=== PATIENT | female | born 1980 | race Caucasian/White ===

== ENCOUNTER 2017-09-22 13:26 | Observation (INO) | payer OTHER ==
[~2017-09-22] VITALS: Ht 167.6 cm; Wt 129.3 kg
[~2017-09-22 13:26] MED LIST: ALDOMET250 MG PO; COLACE100 MG PO; ENDOCET 5-3251 EACH PO; FEOSOL325 MG PO; INDERIDE 40/1 TABLET PO; METHADONE HCL40 MG PO; MICRONOR0.35 MG PO; MOTRIN800 MG PO; Methadone PO; NATALCARE RX1 TABLE1 PO; NOHOMEMEDS; PRENATAL1 EACH PO; PRINIVIL20 MG PO; SEROQUEL100 MG PO; TRAZODONE HCL100 MG PO; ZOLOFT100 MG PO; Zoloft PO
[2017-09-22 14:42] LABS: BASOPHIL COUNT 0.1 K/uL (0-0.1); EOSINOPHIL (%) 0.6 % (0-5); EOSINOPHIL COUNT 0.1 K/uL (0-0.3); IMMATURE GRANULOCYTE (%) 0.3 % (0.0-0.7); INSTRUMENT ABS NEUTROPHIL CT 5.1 K/uL; MCH 23.5 PG (29.0-34.0); MCHC 31.6 G/DL (30.0-36.0); MCV 74.5 FL (83-99); MEAN PLAT.VOLUME 12.3 uM^3 (9.5-12.4); MONOCYTE (%) 8.4 % (3-12); MONOCYTE COUNT 0.7 K/uL (0-0.8); NEUTROPHIL (%) 64.9 % (45-76); NEUTROPHIL COUNT 5.1 K/uL (1.8-6.4); PLATELET COUNT 284 K/uL (156-360); RBC DIS.WIDTH-CV 16.9 % (11.8-14.6); RBC DIS.WIDTH-SD 42.7 % (39-53); RED BLOOD COUNT 6.04 M/uL (3.80-5.20); WHITE BLOOD COUNT 7.9 K/uL (4.1-10.2)
[2017-09-22 14:43] LABS: INTER. NORMALIZED RATIO 1.2; PROTHROMBIN TIME 13.4 SEC (10.2-12.9)
[2017-09-22 14:46] LABS: PTT 26.8 SEC (25-37)
[2017-09-22 14:49] LABS: CHLORIDE 104 mEq/L (99-109); POTASSIUM 4.5 mEq/L (3.7-5.4); SODIUM 138 mEq/L (136-147)
[2017-09-22 14:51] LABS: GLUCOSE 205 mg/dL (70-99)
[2017-09-22 14:53] LABS: ANION GAP 10 MEQ/L (2-14); TOTAL BILIRUBIN 0.5 mg/dL (0.0-1.0)
[2017-09-22 14:55] LABS: ALKALINE PHOSPHATASE 55 IU/L (3-129); GFR ESTIMATE (CALCULATED) > 59 mL/min/
[2017-09-22 14:56] LABS: UREA NITROGEN (BUN) 12 mg/dL (9-23)
[2017-09-22 15:49] LABS: ADD MIUA? YES; BILIRUBIN NEGATIVE; BLOOD NEGATIVE; COLOR YELLOW ((YELLOW)); GLUCOSE (STRIP) 50; KETONES 5; LEUKOCYTES TRACE; NITRITE NEGATIVE; PROTEIN (STRIP) 30; SPECIFIC GRAVITY 1.027 (1.000-1.030); UROBILINOGEN 0.2 MG/DL (0.2-1.0)
[2017-09-22 15:51] LABS: INTERNAL CONTROL VALID? YES
[2017-09-22 16:00] LABS: AMPHETAMINE NEGATIVE (500 ng/mL); BACTERIA 1+ /HPF; BARBITURATES NEGATIVE (200 ng/mL); BENZODIAZEPINES NEGATIVE (150 ng/mL); COCAINE NEGATIVE (150 ng/mL); EPITHELIAL CELLS RARE /HPF; GRANULAR CASTS 0-5 /LPF; INTERNAL CONTROLS VALID? YES; METHADONE NEGATIVE (200 ng/mL); METHAMPHETAMINE NEGATIVE (500 ng/mL); MUCUS 1+ /LPF; OPIATES (MORPHINE) NEGATIVE (100 ng/mL); OXYCODONE NEGATIVE (100 ng/mL); PHENCYCLIDINE NEGATIVE (25 ng/mL); PROPOXYPHENE NEGATIVE (300 ng/mL); RED BLOOD CELLS 0-5 /HPF (0-5); THC CANNABINOIDS NEGATIVE (50 ng/mL); TRICYCLIC ANTIDEPRESSANTS NEGATIVE (300 ng/mL); UCUL ADDED? YES
[2017-09-22 20:02] LABS: APPEARANCE CLEAR/COLORLESS; APPEARANCE (RECHECK) CLEAR/COLORLESS; CSF TUBE NUMBER (RECHECK) TUBE #4; RED CELL AREA COUNTED 8; RED CELL COUNT 1348 /MM^3 (0-1); RED CELL DILUTION 1; WBC AREA COUNTED 18; WBC DILUTION 1; WHITE CELL COUNT 0 /MM^3 (0-5); WHITE CELL RAW COUNT 0
[2017-09-22 20:03] LABS: RED CELL AREA COUNTED 18; RED CELL COUNT (RECHECK) 2 /MM^3 (0-1)
[2017-09-23 02:23] LABS: TROP-I INTERPRETATION NEGATIVE; TROPONIN-I < 0.01 ng/mL (0.0-0.30)
[2017-09-23 02:29] VITALS: BP 170/93
[2017-09-23 08:00] LABS: HEMATOCRIT 41.3 % (36.0-46.0); MCH 23.6 PG (29.0-34.0); MCHC 31.7 G/DL (30.0-36.0); MCV 74.4 FL (83-99); PLATELET COUNT 274 K/uL (156-360); RBC DIS.WIDTH-SD 42.4 % (39-53); RED BLOOD COUNT 5.55 M/uL (3.80-5.20); WHITE BLOOD COUNT 7.3 K/uL (4.1-10.2)
[2017-09-23 08:03] LABS: TROP-I INTERPRETATION NEGATIVE; TROPONIN-I < 0.01 ng/mL (0.0-0.30)
[2017-09-23 08:11] LABS: ANION GAP 10 MEQ/L (2-14); CHLORIDE 103 MEQ/L (99-109); GFR ESTIMATE (CALCULATED) > 59 mL/min/; GLUCOSE 203 mg/dL (70-99); POTASSIUM 4.1 MEQ/L (3.7-5.4); SAMPLE HEMOLYSIS CHECK 0; SAMPLE ICTERIC CHECK 0; SAMPLE LIPEMIA CHECK 0; SODIUM 137 MEQ/L (136-147); UREA NITROGEN (BUN) 10 mg/dL (9-23)
[2017-09-23 09:12] LABS: Estimated Average Glucose 206 mg/dL (70-123); HEMOGLOBIN A1c (GLYCOHEMOGLOB) 8.8 % HGB (Below 5.7)
[2017-09-23 09:35] VITALS: BP 164/87
[2017-09-23 14:10] LABS: TROP-I INTERPRETATION NEGATIVE; TROPONIN-I < 0.01 ng/mL (0.0-0.30)
[2017-09-23] MEDS ORDERED: AMOX TR-K CLV1 EAC4 PO (14:22)
[2017-09-23] MEDS ORDERED: LOPRESSOR50 MG PO (14:22)
[2017-09-23] MEDS ORDERED: TOPAMAX25 MG PO (14:25)
== END 2017-09-23 16:58 ==
LOC: EME 13:26 → EDOF 09-23 01:14 → 5WEST 09-23 01:14 → ENRESERV 09-23 01:16 → 5WEST 09-23 02:22
PROVIDERS: Emergency Medicine; Physician Assistant
DX: R51 Headache (principal); I10 Essential (primary) hypertension; H53.141 Visual discomfort, right eye; N39.0 Urinary tract infection, site not specified; F32.9 Major depressive disorder, single episode, unspecified; R73.9 Hyperglycemia, unspecified; R07.9 Chest pain, unspecified; R55 Syncope and collapse; F41.9 Anxiety disorder, unspecified; F11.20 Opioid dependence, uncomplicated; E66.9 Obesity, unspecified; Z68.42 Body mass index [BMI] 45.0-49.9, adult; Z82.49 Family history of ischemic heart disease and other diseases of the circulatory system; Z83.3 Family history of diabetes mellitus; Z88.5 Allergy status to narcotic agent; Z88.6 Allergy status to analgesic agent
CPT/HCPCS: 62270; 70450; 71010; 77003; 80048; 80053; 81003; 82945; 83036; 84157; 84484; 84703; 85025; 85027; 85610; 85730; 87070; 87086; 87205; 89051; 93005; 99281; 99284; G0378; J1100; J1200; J1650; J2060; J2270; J2765; J3010; J7030